=== PATIENT | female | born 1975 | race Caucasian/White ===

== ENCOUNTER 2017-08-12 15:05 | Inpatient (IN) | payer OTHER ==
[~2017-08-12] VITALS: Ht 154.9 cm; Wt 46.3 kg
[2017-08-12 16:45] VITALS: BP 133/85
[2017-08-12 17:00] VITALS: BP 133/81
[2017-08-12 17:07] LABS: BASO # 0.1 10*3/uL (0.0-0.1); BASO % 0.8 % (0.0-1.0); EOS % 0.3 % (1.0-4.0); HEMATOCRIT 39.9 % (37.0-47.0); HEMOGLOBIN 13.7 g/dl (12.0-16.0); LYMPH # 1.4 10*3/uL (1.3-4.4); LYMPH % 21.8 % (27.0-41.0); MEAN CELL VOLUME 99.3 fl (81.0-99.0); MEAN CORPUSCULAR HGB 34.1 pg (27.0-31.0); MEAN CORPUSCULAR HGB CONC 34.3 g/dl (33.0-37.0); MEAN PLATELET VOLUME 9.7 fl (9.6-12.3); MONO # 0.5 10*3/uL (0.1-1.0); MONO % 7.6 % (3.0-9.0); NEUT # 4.5 10*3/uL (2.3-7.9); NEUT % 69.2 % (47.0-73.0); PLATELET COUNT AUTOMATED 184 10*3/uL (130-400); RED BLOOD COUNT 4.02 10*6/uL (4.10-5.10); RED CELL DISTRI WIDTH 13.8 % (0-14.5); WHITE BLOOD COUNT 6.5 10*3/uL (4.8-10.8)
[2017-08-12 17:16] LABS: INTERNATIONAL NORM RATIO 0.9 (2.0-3.5)
[2017-08-12 17:23] LABS: ALKALINE PHOSPHATASE 80 U/L (45-117); BUN 14 mg/dl (7-24); CHLORIDE 101 mmol/L (98-107); CREATININE 0.61 mg/dL (0.55-1.02); POTASSIUM 4.6 mmol/L (3.5-5.1); SGOT/AST 79 IU/L (3-35); SGPT/ALT 81 U/L (12-78); SODIUM 139 mmol/L (136-145); TOTAL PROTEIN 7.4 gm/dL (6.4-8.2)
[2017-08-12 17:28] LABS: BETA-HCG, QUANT < 1.0 mIU/mL (1-3)
[2017-08-12] MEDS ORDERED: SUBOXONE 8 MG-1 EACH SL ×2 (18:06→18:07)
[2017-08-12 18:35] LABS: BILIRUBIN NEGATIVE (NEGATIVE); BLOOD NEGATIVE (NEGATIVE); CLARITY SL CLOUDY (CLEAR); COLOR YELLOW (YELLOW); GLUCOSE NEGATIVE (NEGATIVE); KETONE NEGATIVE (NEGATIVE); LEUKO ESTERASE NEGATIVE (NEGATIVE); NITRITE NEGATIVE (NEGATIVE); SPECIFIC GRAVITY 1.015 (1.005-1.030); UROBILINOGEN 0.2 E.U./dl (0.2-1.0)
[2017-08-12 18:40] LABS: EPITHELIAL CELLS TNTC
[2017-08-12 18:41] LABS: BACTERIA 1+; WBC 0-2 wbc/hpf (0-5)
[2017-08-12 18:46] LABS: URINE AMPHETAMINES < 1000 (1000ng/ml); URINE BARBITURATES < 200 (200ng/ml); URINE BENZODIAZEPINES < 200 (200ng/ml); URINE CANNABINOIDS (THC) < 50 (50ng/ml); URINE COCAINE < 300 (300ng/ml); URINE METHADONE < 300 (300ng/ml); URINE OPIATES < 300 (300ng/ml)
[2017-08-12 18:47] LABS: URINE PHENCYCLIDINE < 25 (25ng/ml)
[2017-08-12 20:00] VITALS: BP 144/95
[2017-08-13] VITALS: BP 145/93
[2017-08-13 08:00] VITALS: BP 132/94
[2017-08-13 12:00] VITALS: BP 142/94
[2017-08-13 16:00] VITALS: BP 115/85
[2017-08-13 20:00] VITALS: BP 128/87
[2017-08-14] VITALS: BP 119/77
[2017-08-14 08:00] VITALS: BP 104/78
[2017-08-14 12:00] VITALS: BP 110/82
[2017-08-14 16:00] VITALS: BP 111/64
[2017-08-14 20:00] VITALS: BP 136/79
[2017-08-15] VITALS: BP 123/81
[2017-08-15 07:15] LABS: BASO % 0.7 % (0.0-1.0); EOS # 0.1 10*3/uL (0.0-0.4); EOS % 2.1 % (1.0-4.0); LYMPH # 1.8 10*3/uL (1.3-4.4); LYMPH % 42.6 % (27.0-41.0); MEAN CELL VOLUME 99.2 fl (81.0-99.0); MEAN CORPUSCULAR HGB 33.1 pg (27.0-31.0); MEAN CORPUSCULAR HGB CONC 33.3 g/dl (33.0-37.0); MEAN PLATELET VOLUME 10.8 fl (9.6-12.3); MONO # 0.4 10*3/uL (0.1-1.0); MONO % 10.5 % (3.0-9.0); NEUT # 1.8 10*3/uL (2.3-7.9); NEUT % 43.9 % (47.0-73.0); PLATELET COUNT AUTOMATED 128 10*3/uL (130-400); RED BLOOD COUNT 3.93 10*6/uL (4.10-5.10); RED CELL DISTRI WIDTH 13.5 % (0-14.5); WHITE BLOOD COUNT 4.2 10*3/uL (4.8-10.8)
[2017-08-15 07:41] LABS: CREATININE 0.64 mg/dL (0.55-1.02)
[2017-08-15 08:00] VITALS: BP 115/74
[2017-08-15] MEDS ORDERED: ZOFRAN 4 MG ED2 TAB PO (12:35)
[2017-08-15] MEDS ORDERED: ATARAX,VISTARIL50 MG PO (12:35)
== END 2017-08-15 13:40 | disposition home or self-care (01) | DRG 897 ==
LOC: 5E 15:05
PROVIDERS: Emergency Medicine; Student in an Organized Health Care Education/Training Program
DX: F10.230 Alcohol dependence with withdrawal, uncomplicated (principal); F11.10 Opioid abuse, uncomplicated; F10.220 Alcohol dependence with intoxication, uncomplicated; D72.810 Lymphocytopenia; F41.9 Anxiety disorder, unspecified; D75.89 Other specified diseases of blood and blood-forming organs; G25.1 Drug-induced tremor; R74.0 Nonspecific elevation of levels of transaminase and lactic acid dehydrogenase [LDH]; F17.200 Nicotine dependence, unspecified, uncomplicated; Z79.899 Other long term (current) drug therapy; Z71.6 Tobacco abuse counseling